=== PATIENT | female | born 1955 | race Caucasian/White ===

== ENCOUNTER → 2016-12-31 | Outpatient (REF) ==
[~2016-12-31] MED LIST: FOLIC ACID 40400 MCG; IRON325 M1; PRINZIDE 12.5 M1 TA1; TOPAMAX 25MG25 M1; VITAMIN C500 MG
== END ==
LOC: ZLAB.WCH 10:47
DX: Z01.89 Encounter for other specified special examinations (principal)

== ENCOUNTER → 2017-01-18 | Outpatient (CLI) | payer OTHER | LOC: MC.RAD 07:00 | DX: Z01.419 Encounter for gynecological examination (general) (routine) without abnormal findings (principal); Z12.31 Encounter for screening mammogram for malignant neoplasm of breast; Z80.3 Family history of malignant neoplasm of breast ==

== ENCOUNTER → 2017-05-30 | Outpatient (REF) | LOC: WSOH 16:00 | DX: Z02.89 Encounter for other administrative examinations (principal) ==

== ENCOUNTER → 2018-03-12 | Outpatient (REF) | LOC: ZLAB.WCH 08:36 | DX: Z01.89 Encounter for other specified special examinations (principal) ==

== ENCOUNTER → 2019-08-14 | Outpatient (CLI) | payer OTHER | LOC: MC.RAD 07:00 | DX: Z12.31 Encounter for screening mammogram for malignant neoplasm of breast (principal); Z76.89 Persons encountering health services in other specified circumstances ==

== ENCOUNTER → 2020-11-01 | Outpatient (CLI) | payer OTHER | LOC: MC.RAD 16:51 | DX: Z00.00 Encounter for general adult medical examination without abnormal findings (principal); Z12.31 Encounter for screening mammogram for malignant neoplasm of breast ==

== ENCOUNTER → 2022-07-03 | Outpatient (CLI) | payer OTHER | LOC: MC.RAD 08:15 | DX: Z12.31 Encounter for screening mammogram for malignant neoplasm of breast (principal) ==

== ENCOUNTER → 2023-09-13 | Outpatient (CLI) | payer OTHER | LOC: MC.RAD 07:00 | DX: Z12.31 Encounter for screening mammogram for malignant neoplasm of breast (principal) ==